=== PATIENT | female | born 1955 | race Caucasian/White ===

== ENCOUNTER 2024-02-03 09:05 | Emergency (ER) | payer MEDICARE, BC ==
[2024-02-03] MEDS: predniSONE 20 MG Tab PO ONE (10:08)
== END 2024-02-03 11:23 | disposition home or self-care (01) ==
LOC: JP.ED 09:05
DX: T78.40XA Allergy, unspecified, initial encounter (principal); I10 Essential (primary) hypertension; E78.00 Pure hypercholesterolemia, unspecified; K21.9 Gastro-esophageal reflux disease without esophagitis; Z86.16 Personal history of COVID-19; Z90.710 Acquired absence of both cervix and uterus; Z91.030 Bee allergy status; Z88.2 Allergy status to sulfonamides; Z88.8 Allergy status to other drugs, medicaments and biological substances; Z88.5 Allergy status to narcotic agent; Z79.899 Other long term (current) drug therapy
CPT/HCPCS: 99283; J7512